=== PATIENT | female | born 1970 | race Caucasian/White ===

== ENCOUNTER 2018-11-09 19:00 | Emergency (ER) | payer OTHER, SELFPAY ==
[2018-11-09 19:12] VITALS: BP 104/68; PULSE 75; RESP 18; TEMP 36.6; O2SAT 100; BMI 19.7
--- NOTE | 2018-11-09 19:23 | DI.RAD.S_ITS ---
PROCEDURE: XR KNEE RT 3V INDICATIONS: probable fracture TECHNIQUE: 2 views of the knee were acquired. COMPARISON: None. FINDINGS: Bones: Mild bony step-off involving the tibial plateau on the lateral view only. No suspicious bony lesions. Soft tissues: Lipohemarthrosis. No suspicious soft tissue calcifications. IMPRESSION: 1. Mildly displaced tibial plateau fracture. 2. Lipohemarthrosis. Dictated by: Tami Parker M.D. on 11/09/2018 at 20:11 Approved by: Tami Parker M.D. on 11/09/2018 at 20:12
[2018-11-09 20:00] VITALS: PULSE 67
--- NOTE | 2018-11-09 20:03 | ED.LOWEXIN ---
HPI - Extremity Injury (Lower) General Chief Complaint: Extremity Injury, Lower Stated Complaint: fall yesterday,states fx tibia Time Seen by Provider: 11/09/18 19:15 Source: patient and family Mode of arrival: wheelchair Limitations: no limitations History of Present Illness HPI Narrative: 48-year-old female, nonsmoker with noncontributory medical history presents with right knee injury suffered yesterday. She was hiking in [place] when she tripped and fell forward on a steep hiking trail and she felt a pop in her knee. Since then she has had tremendous pain, swelling and inability to ambulate. She was seen at an outside facility and had x-rays suggesting a tibial plateau fracture. She presents here for orthopedic evaluation and plans for surgery. She does have some tenderness in her left shoulder but has full range of motion. She did not injure her head neck or back. She was placed in a knee immobilizer at prior facility complaint: knee injury Onset (ago): day(s) Injury: Right: knee Type of Injury: blunt Place: street/outdoors Severity: moderate Relieving factors: nothing Exacerbating factors: nothing Context: direct blow Associated symptoms: snap/pop sensation, swelling and unable to bear weight Other symptoms: none Treatments prior to arrival: splint Related Data Previous Rx's Medication Instructions Recorded oxycodone-acetaminophen [Percocet] 1 tab PO Q4-6H PRN #30 tab 11/09/18 Allergies Allergy/AdvReac Type Severity Reaction Status Date / Time Penicillins Allergy Unknown Verified 11/09/18 19:56 Review of Systems Constitutional Denies chills, Denies fever(s), Denies lethargy and Denies weakness Eyes Denies change in vision, Denies eye discharge, Denies irritation and Denies loss of vision ENT Ears, Nose, Mouth, and Throat: Denies change in voice, Denies neck pain and Denies sore throat Cardiovascular Denies chest pain, Denies irregular heart rhythm, Denies lightheadedness, Denies palpitations, Denies dyspnea, Denies dyspnea on exertion and Denies orthopnea Respiratory Denies cough, Denies dyspnea, Denies dyspnea on exertion and Denies wheezing Gastrointestinal Gastrointestinal: Denies abdominal pain, Denies change in bowel habits, Denies diarrhea, Denies nausea and Denies vomiting Genitourinary Denies hematuria, Denies flank pain, Denies urinary incontinence and Denies urinary urgency Musculoskeletal Reports joint swelling, Reports limited range of motion and Denies neck pain Integumentary/Breasts Denies pruritus, Denies erythema, Denies rash and Denies wounds Neurologic Denies confusion, Denies loss of vision and Denies weakness Psychiatric Denies anxiety, Denies confusion, Denies depression, Denies homicidal ideation and Denies suicidal ideation Endocrine Denies palpitations Hematologic/Lymphatic Denies easy bruising Allergic/Immunologic Denies wheezing PFSH Social History Smoking Status: Never smoker Social History Smoking Status: Never smoker Exam Narrative Exam Narrative: GENERAL: 48F in pain, wearing immobilizer, GCS 15 HEAD: Atraumatic. Normocephalic. No temporal or scalp tenderness. EYES: Pupils equal round and reactive. Extraocular motions intact. No scleral icterus. No injection or drainage. ENT: Nose without bleeding, purulent drainage or septal hematoma. Throat without erythema, tonsillar hypertrophy or exudate. Uvula midline. Airway patent. NECK: Trachea midline. No JVD or lymphadenopathy. Supple, nontender, no meningeal signs. CARDIOVASCULAR: Regular rate and rhythm without murmurs, gallops, or rubs. RESPIRATORY: Clear to auscultation. Breath sounds equal bilaterally. No wheezes, rales, or rhonchi. GASTROINTESTINAL: Abdomen soft, non-tender, nondistended. No hepato-splenomegaly, or palpable masses. No guarding. EXTREMITIES: No clubbing, cyanosis, or edema. No joint tenderness, effusion, or edema noted. BACK: Nontender without deformity or crepitance. No flank tenderness. NEURO: AOx3. SKIN: No rash or erythema. Initial Vital Signs Initial Vital Signs: Vital Signs Temperature 98 F 11/09/18 19:12 Pulse Rate 75 11/09/18 19:12 Respiratory Rate 18 11/09/18 19:12 Blood Pressure 104/68 11/09/18 19:12 Pulse Oximetry 100 11/09/18 19:12 Procedures Orthopedic Splinting/Casting Injury #1: Side: right Lower Extremity Injury Location: knee Lower Extremity Immobilizer: knee immobilizer Other Orthopedic Equipment: crutches Post splinting neuro exam: intact Post splinting vascular exam: intact Placed by: Nursing Course Orders Ordered: ED Orders 11/09/18 19:23 XR knee RT 1to2V Stat 11/09/18 20:27 CT LE RT wo con Stat Discontinued Medications Ondansetron HCl (Zofran Odt) 4 mg PO NOW ONE Stop: 11/09/18 20:26 Last Admin: 11/09/18 20:26 Dose: 4 mg Oxycodone/Acetaminophen (Percocet 5/325) 2 tab PO NOW ONE Stop: 11/09/18 20:26 Last Admin: 11/09/18 20:26 Dose: 2 tab Oxycodone/Acetaminophen (Endocet 5/325 Prepack) 1 bottle MISC SEEINSTR ONE Stop: 11/09/18 21:54 Last Admin: 11/09/18 22:22 Dose: 1 bottle Consultations Consultation #1: call to hydro station supervisor ortho to discuss case, he recommends CT after seeing xray. Then crutches, knee immobilizer, no weight bearing, and follow up Vital Signs - 8 hr 11/09/18 19:12 Temperature 98 F Pulse Rate 75 Respiratory Rate 18 Blood Pressure 104/68 Pulse Oximetry 100 MDM - Extremity Injury (Lower) Imaging Data Knee Xray: Radiologist's impression: [address] [address] XRay Report Signed Patient: Arlette Rao LMR#: [id number] : 1970Acct:[id number] Age/Sex: 48 / FDate of Service: 11/09/18 Loc: ED Accession Number: [id number] Procedure: XR knee RT 1to2V Ordering Provider: Rob Rausch D.O. PROCEDURE: XR KNEE RT 3V INDICATIONS: probable fracture TECHNIQUE: 2 views of the knee were acquired. COMPARISON: None. FINDINGS: Bones: Mild bony step-off involving the tibial plateau on the lateral view only. No suspicious bony lesions. Soft tissues: Lipohemarthrosis. No suspicious soft tissue calcifications. IMPRESSION: 1. Mildly displaced tibial plateau fracture. 2. Lipohemarthrosis. Dictated by: Tami Parker M.D. on 11/09/2018 at 20:[address]: Radiologist's impression: Arlette Rao 48 F [address] [address] [address] Scan Report Signed Patient: ChristopherubaldoArlette LMR#: [id number] : 1970Acct:[id number] Age/Sex: 48 / FDate of Service: 11/09/18 Loc: ED Accession Number: [id number] Procedure: CT LE RT wo con Ordering Provider: Rob Rausch D.O. PROCEDURE: CT LE RT WO CON INDICATIONS: tibial plateau fx TECHNIQUE: Noncontrast 1-1.5 mm axial sections acquired from the mid-patella to the proximal tibia, with coronal and sagittal reformats. COMPARISON: [facility], CR, XR KNEE RT 3V, 11/09/2018, 19:53. FINDINGS: Image quality: Excellent. Bones: There is a mildly displaced comminuted fracture of the medial and lateral tibial plateau with articular surface extension the to the medial and lateral articular surfaces. Soft tissues: Lipohemarthrosis is present. IMPRESSION: 1. Medial and lateral tibial plateau fracture. 2. Lipohemarthrosis. Dictated by: Tami Parker M.D. on 11/09/2018 at 21:49 Approved by: Tami Parker M.D. on 11/09/2018 at 21:50 Discharge Plan Departure Patient Disposition: Home Clinical Impression: Closed fracture of tibial plateau Qualifiers: Encounter type: initial encounter Laterality: right Qualified Code(s): S82.141A - Displaced bicondylar fracture of right tibia, initial encounter for closed fracture Discharge Date/Time: 11/09/18 22:20 Interventions: ED Discharge Assessment Last Done: 11/09/18 22:20 Instructions: DI for Tibial Plateau Fracture Activity Restrictions/Additional Instructions: *You have been diagnosed with [acute Right Tibial Plateau fracture ] *What to do: *Take medications as directed *Follow up with [facility], call Monday for follow up * absolutely no weight-bearing *Return to ER if you should have any new, worsening or concerning symptoms, Prescriptions: New oxycodone-acetaminophen [Percocet] 5-325 mg tablet 1 tab PO Q4-6H PRN (Reason: pain) Qty: 30 RF: 0 Referrals: Mykel Garay MD [Physician] -
--- NOTE | 2018-11-09 20:06 | ED_ITS ---
HPI - Extremity Injury (Lower) General Chief Complaint: Extremity Injury, Lower Stated Complaint: fall yesterday,states fx tibia Time Seen by Provider: 11/09/18 19:15 Source: patient and family Mode of arrival: wheelchair Limitations: no limitations History of Present Illness HPI Narrative: 48-year-old female, nonsmoker with noncontributory medical history presents with right knee injury suffered yesterday. She was hiking in [place] when she tripped and fell forward on a steep hiking trail and she felt a pop in her knee. Since then she has had tremendous pain, swelling and inability to ambulate. She was seen at an outside facility and had x-rays suggesting a tibial plateau fracture. She presents here for orthopedic evaluation and plans for surgery. She does have some tenderness in her left shoulder but has full range of motion. She did not injure her head neck or back. She was placed in a knee immobilizer at prior facility complaint: knee injury Onset (ago): day(s) Injury: Right: knee Type of Injury: blunt Place: street/outdoors Severity: moderate Relieving factors: nothing Exacerbating factors: nothing Context: direct blow Associated symptoms: snap/pop sensation, swelling and unable to bear weight Other symptoms: none Treatments prior to arrival: splint Related Data Previous Rx's Medication Instructions Recorded oxycodone-acetaminophen [Percocet] 1 tab PO Q4-6H PRN #30 tab 11/09/18 Allergies Allergy/AdvReac Type Severity Reaction Status Date / Time Penicillins Allergy Unknown Verified 11/09/18 19:56 Review of Systems Constitutional Denies chills, Denies fever(s), Denies lethargy and Denies weakness Eyes Denies change in vision, Denies eye discharge, Denies irritation and Denies loss of vision ENT Ears, Nose, Mouth, and Throat: Denies change in voice, Denies neck pain and Denies sore throat Cardiovascular Denies chest pain, Denies irregular heart rhythm, Denies lightheadedness, Denies palpitations, Denies dyspnea, Denies dyspnea on exertion and Denies orthopnea Respiratory Denies cough, Denies dyspnea, Denies dyspnea on exertion and Denies wheezing Gastrointestinal Gastrointestinal: Denies abdominal pain, Denies change in bowel habits, Denies diarrhea, Denies nausea and Denies vomiting Genitourinary Denies hematuria, Denies flank pain, Denies urinary incontinence and Denies urinary urgency Musculoskeletal Reports joint swelling, Reports limited range of motion and Denies neck pain Integumentary/Breasts Denies pruritus, Denies erythema, Denies rash and Denies wounds Neurologic Denies confusion, Denies loss of vision and Denies weakness Psychiatric Denies anxiety, Denies confusion, Denies depression, Denies homicidal ideation and Denies suicidal ideation Endocrine Denies palpitations Hematologic/Lymphatic Denies easy bruising Allergic/Immunologic Denies wheezing PFSH Social History Smoking Status: Never smoker Social History Smoking Status: Never smoker Exam Narrative Exam Narrative: GENERAL: 48F in pain, wearing immobilizer, GCS 15 HEAD: Atraumatic. Normocephalic. No temporal or scalp tenderness. EYES: Pupils equal round and reactive. Extraocular motions intact. No scleral icterus. No injection or drainage. ENT: Nose without bleeding, purulent drainage or septal hematoma. Throat without erythema, tonsillar hypertrophy or exudate. Uvula midline. Airway patent. NECK: Trachea midline. No JVD or lymphadenopathy. Supple, nontender, no meningeal signs. CARDIOVASCULAR: Regular rate and rhythm without murmurs, gallops, or rubs. RESPIRATORY: Clear to auscultation. Breath sounds equal bilaterally. No wheezes, rales, or rhonchi. GASTROINTESTINAL: Abdomen soft, non-tender, nondistended. No hepato- splenomegaly, or palpable masses. No guarding. EXTREMITIES: No clubbing, cyanosis, or edema. No joint tenderness, effusion, or edema noted. BACK: Nontender without deformity or crepitance. No flank tenderness. NEURO: AOx3. SKIN: No rash or erythema. Initial Vital Signs Initial Vital Signs: Vital Signs Temperature 98 F 11/09/18 19:12 Pulse Rate 75 11/09/18 19:12 Respiratory Rate 18 11/09/18 19:12 Blood Pressure 104/68 11/09/18 19:12 Pulse Oximetry 100 11/09/18 19:12 Procedures Orthopedic Splinting/Casting Injury #1: Side: right Lower Extremity Injury Location: knee Lower Extremity Immobilizer: knee immobilizer Other Orthopedic Equipment: crutches Post splinting neuro exam: intact Post splinting vascular exam: intact Placed by: Nursing Course Orders Ordered: ED Orders 11/09/18 19:23 XR knee RT 1to2V Stat 11/09/18 20:27 CT LE RT wo con Stat Discontinued Medications Ondansetron HCl (Zofran Odt) 4 mg PO NOW ONE Stop: 11/09/18 20:26 Last Admin: 11/09/18 20:26 Dose: 4 mg Oxycodone/Acetaminophen (Percocet 5/325) 2 tab PO NOW ONE Stop: 11/09/18 20:26 Last Admin: 11/09/18 20:26 Dose: 2 tab Oxycodone/Acetaminophen (Endocet 5/325 Prepack) 1 bottle MISC SEEINSTR ONE Stop: 11/09/18 21:54 Last Admin: 11/09/18 22:22 Dose: 1 bottle Consultations Consultation #1: call to refrigeration mechanic ortho to discuss case, he recommends CT after seeing xray. Then crutches, knee immobilizer, no weight bearing, and follow up Vital Signs - 8 hr 11/09/18 19:12 Temperature 98 F Pulse Rate 75 Respiratory Rate 18 Blood Pressure 104/68 Pulse Oximetry 100 MDM - Extremity Injury (Lower) Imaging Data Knee Xray: Radiologist's impression: [address] [address] XRay Report Signed Patient: Arlette Rao LMR#: [id number] : 1970Acct:[id number] Age/Sex: 48 / FDate of Service: 11/09/18 Loc: ED Accession Number: [id number] Procedure: XR knee RT 1to2V Ordering Provider: Rob Rausch D.O. PROCEDURE: XR KNEE RT 3V INDICATIONS: probable fracture TECHNIQUE: 2 views of the knee were acquired. COMPARISON: None. FINDINGS: Bones: Mild bony step-off involving the tibial plateau on the lateral view only. No suspicious bony lesions. Soft tissues: Lipohemarthrosis. No suspicious soft tissue calcifications. IMPRESSION: 1. Mildly displaced tibial plateau fracture. 2. Lipohemarthrosis. Dictated by: Tami Parker M.D. on 11/09/2018 at 20:[address]: Radiologist's impression: Arlette Rao 48 F [address] [address] [address] Scan Report Signed Patient: ChristopherubaldoArlette LMR#: [id number] : 1970Acct:[id number] Age/Sex: 48 / FDate of Service: 11/09/18 Loc: ED Accession Number: [id number] Procedure: CT LE RT wo con Ordering Provider: Rob Rausch D.O. PROCEDURE: CT LE RT WO CON INDICATIONS: tibial plateau fx TECHNIQUE: Noncontrast 1-1.5 mm axial sections acquired from the mid-patella to the proximal tibia, with coronal and sagittal reformats. COMPARISON: [facility], CR, XR KNEE RT 3V, 11/09/2018, 19:53. FINDINGS: Image quality: Excellent. Bones: There is a mildly displaced comminuted fracture of the medial and lateral tibial plateau with articular surface extension the to the medial and lateral articular surfaces. Soft tissues: Lipohemarthrosis is present. IMPRESSION: 1. Medial and lateral tibial plateau fracture. 2. Lipohemarthrosis. Dictated by: Tami Parker M.D. on 11/09/2018 at 21:49 Approved by: Tami Parker M.D. on 11/09/2018 at 21:50 Discharge Plan Departure Patient Disposition: Home Clinical Impression: Closed fracture of tibial plateau Qualifiers: Encounter type: initial encounter Laterality: right Qualified Code(s): S82.141A - Displaced bicondylar fracture of right tibia, initial encounter for closed fracture Discharge Date/Time: 11/09/18 22:20 Interventions: ED Discharge Assessment Last Done: 11/09/18 22:20 Instructions: DI for Tibial Plateau Fracture Activity Restrictions/Additional Instructions: *You have been diagnosed with [acute Right Tibial Plateau fracture ] *What to do: *Take medications as directed *Follow up with [facility], call Monday for follow up * absolutely no weight-bearing *Return to ER if you should have any new, worsening or concerning symptoms, Prescriptions: New oxycodone-acetaminophen [Percocet] 5-325 mg tablet 1 tab PO Q4-6H PRN (Reason: pain) Qty: 30 RF: 0 Referrals: Mykel Garay MD [Physician] -
[2018-11-09] MEDS: ONDANSETRON 4 MG ODT PO (20:26)
[2018-11-09] MEDS: OXYCODONE/ACETAMINOPHEN 5/325 TABLET 2 TAB PO (20:26)
--- NOTE | 2018-11-09 20:27 | DI.CT.S_ITS ---
PROCEDURE: CT LE RT WO CON INDICATIONS: tibial plateau fx TECHNIQUE: Noncontrast 1-1.5 mm axial sections acquired from the mid-patella to the proximal tibia, with coronal and sagittal reformats. COMPARISON: [facility], CR, XR KNEE RT 3V, 11/09/2018, 19:53. FINDINGS: Image quality: Excellent. Bones: There is a mildly displaced comminuted fracture of the medial and lateral tibial plateau with articular surface extension the to the medial and lateral articular surfaces. Soft tissues: Lipohemarthrosis is present. IMPRESSION: 1. Medial and lateral tibial plateau fracture. 2. Lipohemarthrosis. Dictated by: Tami Parker M.D. on 11/09/2018 at 21:49 Approved by: Tami Parker M.D. on 11/09/2018 at 21:50
[2018-11-09 21:30] VITALS: BP 106/68; PULSE 64; RESP 17; O2SAT 100
[2018-11-09] MEDS: OXYCODONE/APAP 5/325 PREPACK 1 BOTTLE MISC (22:22)
== END 2018-11-09 22:20 | disposition home or self-care (01) ==
PROVIDERS: Emergency Provider Emergency Medicine
DX: S82.141A Displaced bicondylar fracture of right tibia, initial encounter for closed fracture (principal); W19.XXXA Unspecified fall, initial encounter
CPT/HCPCS: 73560; 73700; 99282; 99284

== ENCOUNTER → 2018-11-16 14:20 | Outpatient (CLI) | payer OTHER, SELFPAY ==
--- NOTE | 2018-11-16 | DI.US.S_ITS ---
PROCEDURE: US PERIPH VENOUS LOW EXTREM RT INDICATIONS: RIGHT LEG PAIN AND SWELLING TECHNIQUE: Real-time imaging, as well as color and pulse Doppler interrogation, were performed of the lower extremity deep veins from the inguinal ligament to the popliteal fossa. COMPARISON: None. FINDINGS: The common femoral, femoral and popliteal veins are normally compressible, and free of intraluminal thrombus. Color and pulse Doppler demonstrate normal phasic intraluminal flow. There is normal augmentation response to distal compression maneuver. IMPRESSION: No deep venous thrombosis identified within the right lower extremity. Dictated by: Andi Vanessa [facility] Interpreted: Oz Mcdonnell MD on 11/16/2018 at 15:58 Approved by: Oz Mcdonnell M.D. on 11/16/2018 at 18:09
== END ==
PROVIDERS: Visit Provider Orthopaedic Surgery
DX: M79.604 Pain in right leg (principal); M79.89 Other specified soft tissue disorders
CPT/HCPCS: 93971

== ENCOUNTER 2019-06-11 07:58 | Day surgery (SDC) | payer OTHER, SELFPAY ==
[2019-06-07 13:06] VITALS: BMI 19.3
[2019-06-11] VITALS (12 sets, daily range): BP systolic 101–147; BP diastolic 64–86; PULSE 50–95; RESP 10–24; TEMP 36.2–36.8; O2SAT 96–100; BMI 19.5
--- NOTE | 2019-06-11 09:00 | PM.PREOP ---
Pre-operative Note Interval Note History & Physical reviewed/Exam performed by Physician: Yes Changes to H&P: No
[2019-06-11] MEDS: LACTATED RINGERS 1,000 ML 42 ML IV (09:13)
[2019-06-11] MEDS: CLINDAMYCIN 900 MG/50 ML PIGGYBACK 50 MG IV (09:15)
--- NOTE | 2019-06-11 09:45 | SUR.OPER ---
Left Lateral on padded OR bed, head on pillow, gel axillary roll in place, bottom leg bent with gel pad under knee to foot, upper leg straight and supported with pillows. Upper arm supported by pillows and secured over bottom arm to padded arm board. Safety belt at hip, tape over blanket lower legs.
[2019-06-11] MEDS: BUPIVACAINE 0.25% W/ EPI (PF) 10 ML VIAL 20 ML INJ (10:31)
[2019-06-11] MEDS: HYDROMORPHONE 2 MG INJ IV (11:03)
[2019-06-11] MEDS: fentaNYL 100 MCG/2 ML INJ IV ×3 (11:03→11:22)
[2019-06-11] MEDS: ONDANSETRON 4 MG/2 ML INJ IV (11:03)
--- NOTE | 2019-06-11 11:03 | PM.OP.1 ---
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 The patient underwent over 6 months of physical therapy it but in her recovery. Developed an equinus contracture. She has been working diligently with physical therapy and stretching but is not able to get above neutral. She did increase from 20? plantar flexion up to neutral. She has no difference in her dorsiflexion to neutral in knee extension and knee flexion therefore has an Achilles contracture. We discussed Achilles lengthening in order to get her please 10? dorsiflexion to help with normalizing gait. The risks and benefits of the procedure have been discussed with the patient even opportunity to ask questions. The risks of surgery include but are not limited to infection, malunion, nonunion, persistence of pain, damage to nerves and blood vessels, posttraumatic arthritis, DVT, PE, cardiopulmonary complications and . The patient expressed a thorough understanding of the risks and benefits of surgery and has elected to proceed. Consent was signed in the office. Postoperatively the patient will be nonweightbearing for 2 weeks and a dorsiflexion splint. She will then transition to weight-bearing in a boot or cast. She has no history of DVT. She will have aspirin as DVT prophylaxis postoperatively. Surgeon: Cindy Pierson Click Yes if Unassisted: Yes Anesthesia Type: General and Local Operative Notes Findings: Achilles contractures 0? dorsiflexion with knee extended and knee flexion. Following triple mateo section lengthening 10? dorsiflexion obtained. Closure Type: primary Specimen(s): none sent Estimated Blood Loss (mL): 2 Blood products transfused: none Tourniquet time (min): 45 Procedure in detail: The patient was seen in the preoperative area the site of surgery was marked and informed consent confirmed. The patient was then back to the operating room by the anesthesia team positioned supine on the operative table. General anesthesia was administered. Patient was then positioned lateral position on the beanbag. A well-padded thigh tourniquet was placed. All bony prominences were padded with careful padding around the peroneal nerve and a axillary roll placed. An SCD was placed on the contralateral lower extremity. A formal time-out procedure was performed confirming the patient's side and site of surgery and administration of appropriate preoperative antibiotics. All were in agreement. An Esmarch was utilized and tourniquet elevated to 250 mm of mercury and stayed there for 45 minutes. Attention was turned to the leg holding the leg in dorsiflexion to tighten the Achilles 3 small 1-2 cm incisions were made along the Achilles of vertically the Achilles tendon was exposed and 3 mateo sections were made through the tendon. The proximal and distal incisions were made to the medial side and the middle incision to the lateral side. Of note the sural nerve was visualized in the medial incision wound and protected throughout the case. Once the release was complete at extra care was taken dorsiflexing the leg up into about 10? of dorsiflexion and making sure there were no slips of tendon remaining and hampering the release. There was extensive scar tissue noted proximally and laterally in even up to the peroneal fascia posterior laterally this was partially released and gave a few more degrees of dorsiflexion. But a pretty firm endpoint at 10? dorsiflexion was encountered. At this point no further tendon slips were felt to be hampering the range of motion through the Achilles incisions therefore the wounds were irrigated. Tourniquet was released and hemostasis achieved. The wounds were cleaned closed in layers with 4 0 Monocryl and 3 O nylon. 0.25% Marcaine with epinephrine was injected for local anesthetic. A sterile dressing was Xeroform gauze Webril and a posterior and U slab splint in maximal dorsiflexion was applied. Patient was then taken to the recovery room in good condition. There no immediate complications from this procedure. Counts were correct Complications: none Post-operative Condition: stable Disposition: PACU Plan for aftercare: Nonweightbearing right lower extremity. Elevate above the heart level. Pain medications as needed. Keep splint clean dry and intact. Follow-up in 2 weeks. Start aspirin 325 mg daily on postop day 1 for DVT prophylaxis.
[2019-06-11] MEDS: hydrOXYzine 50 MG/ML INJ 25 MG IM (11:15)
[2019-06-11] MEDS: KETOROLAC 30 MG/ML VIAL IV (11:26)
== END 2019-06-11 12:35 | disposition home or self-care (01) ==
PROVIDERS: PCP Orthopaedic Surgery Foot and Ankle Surgery; Visit Provider Orthopaedic Surgery Foot and Ankle Surgery
PROC: (CPT 27685; principal; 2019-06-11 09:15)
DX: M67.01 Short Achilles tendon (acquired), right ankle (principal); M24.571 Contracture, right ankle; M62.89 Other specified disorders of muscle; S86.111A Strain of other muscle(s) and tendon(s) of posterior muscle group at lower leg level, right leg, initial encounter
CPT/HCPCS: 27685; J1100; J1170; J1885; J2250; J2405; J2704; J3010; J3410

== ENCOUNTER → 2020-11-05 12:05 | Outpatient (CLI) | payer OTHER, SELFPAY ==
[2020-11-05 20:14] LABS: Add Manual Diff / Slide Review NO; Basophils Absolute Auto 0 /uL (0-100); Basophils Percent Auto 0.6 % (0-2); Eosinophils Absolute Auto 0 /uL (0-450); Eosinophils Percent Auto 0.8 % (2-4); Hematocrit 39.6 % (36-46); Hemoglobin 13.2 g/dL (12.0-16.0); Lymphocytes Absolute Auto 1000 /uL (1100-4500); Lymphocytes Percent Auto 21.8 % (25-40); Mean Corpuscular HGB Conc 33.3 % (30-36); Mean Corpuscular Hemoglobin 31.1 PG (26-34); Mean Corpuscular Volume 93.3 fL (80-100); Monocytes Absolute Auto 300 /uL (0-900); Neutrophils Absolute Auto 3200 /uL (1500-7000); Neutrophils Percent Auto 69.8 % (50-75); Platelet Count 130 X10^3/uL (150-400); Red Blood Cell Count 4.25 X10^6/uL (4.0-5.2); Red Cell Distribution Width 15.4 % (11.6-14.8); White Blood Cell Count 4.5 X10^3/uL (4.5-11.0)
[2020-11-05 20:29] LABS: HEMOLYSIS < 15 (0-50); Iron 79 ug/dL (37-170)
[2020-11-05 20:42] LABS: Percent Iron Saturation 28 % (15-50); Total Iron Binding Capacity 283 ug/dL (265-497); Transferrin 218 mg/dL (206-381)
[2020-11-05 21:06] LABS: Ferritin 391 ng/mL (11-264)
[2020-11-09 15:35] LABS: Alpha-1-Globulin 0.2 g/dL (0.0-0.4); Alpha-2-Globulin 0.6 g/dL (0.4-1.0); Gamma Globulin 1.3 g/dL (0.4-1.8); Globulin Total 2.9 g/dL (2.2-3.9); Protein, Total 6.9 g/dL (6.0-8.5)
[2020-11-10 14:58] LABS: Alpha-1 Globulin, Ur 3.8 % (.); Gamma Globulin, Ur 17.8 % (.); M-Spike % Not Observed % (Not Observed); Urine Total Protein 6.4 mg/dL (Not Estab.)
== END ==
PROVIDERS: Internal Medicine Gastroenterology; PCP Orthopaedic Surgery Foot and Ankle Surgery; Visit Provider Physician Assistant
DX: E61.1 Iron deficiency (principal)
CPT/HCPCS: 82728; 83540; 83550; 84155; 84156; 84165; 84166; 85025

== ENCOUNTER → 2020-11-27 11:49 | Outpatient (CLI) | payer OTHER, SELFPAY ==
[2020-11-27 20:22] LABS: COVID19 - ORCAS (NP or Nasal) Negative (Negative)
== END ==
PROVIDERS: PCP Orthopaedic Surgery Foot and Ankle Surgery; Visit Provider Family Medicine
DX: Z20.822 Contact with and (suspected) exposure to COVID-19 (principal)
CPT/HCPCS: U0003

== ENCOUNTER → 2020-11-30 14:08 | Outpatient (CLI) | payer OTHER, SELFPAY ==
[2020-11-30 16:44] LABS: COVID19 -Nasal RAPID Negative (Negative)
== END ==
PROVIDERS: PCP Orthopaedic Surgery Foot and Ankle Surgery; Visit Provider Physician Assistant
DX: Z01.812 Encounter for preprocedural laboratory examination (principal); Z20.822 Contact with and (suspected) exposure to COVID-19
CPT/HCPCS: 87635

== ENCOUNTER → 2022-01-10 14:57 | Outpatient (CLI) | payer OTHER, SELFPAY ==
[2022-01-10 15:24] LABS: Specimen Label TEST KIT
[2022-01-12 05:12] LABS: Candida species Negative (Negative); Gardnerella vaginalis Negative (Negative); Trichomoas vaginalis Negative (Negative)
== END ==
PROVIDERS: PCP Family Medicine; Referring Provider Obstetrics & Gynecology; Visit Provider Obstetrics & Gynecology
DX: N76.0 Acute vaginitis (principal)
CPT/HCPCS: 87480; 87510; 87660

== ENCOUNTER 2022-05-05 10:16 | Day surgery (SDC) | payer OTHER, SELFPAY ==
[2022-05-02 08:00] VITALS: BMI 19.7
[2022-05-05] VITALS (8 sets, daily range): BP systolic 125–143; BP diastolic 73–85; PULSE 68–84; RESP 11–19; TEMP 36.1–36.7; O2SAT 97–100; BMI 19.3
--- NOTE | 2022-05-05 | PATH_ITS ---
[facility] Accession Number: [id number] . 01 Material submitted: . ovary - BILATERAL OVARIES, FALLOPIAN TUBES. Modifiers: FALLOPIAN TUBES . 01 Diagnosis: A. Bilateral Ovaries and Fallopian Tubes, Bilateral Salpingo-oophorectomy: Bilateral ovaries with simple lined surface inclusion cysts, focal dystrophic calcifications, and atrophic changes. Bilateral fallopian tubes with benign paratubal cysts. No evidence of dysplasia, neoplasia or malignancy. MRV 05/10/2022 1337 Local . 01 Electronically signed: . Candelaria Jurado MD, Pathologist NPI- [id number] . 01 Gross description: . The specimen is received in formalin labeled with the patient's name, , and bilateral ovaries and fallopian tube, and consists of two unoriented fimbriated fallopian tubes with attached ovaries. The first is arbitrarily designated tube and ovary A. Tube A measures 5.1 cm in length by 0.7 cm in diameter with banks roughened serosa and multiple cystic structures measuring up to 0.7 cm in greatest dimension, filled with clear serous fluid. Sectioning reveals an unremarkable stellate lumen. Ovary A weighs 2 grams and measures 2.7 x 1.7 x 0.9 cm. The external surfaced is yellow-bansk and cerebriform, and sectioning reveals a banks to brown physiologic cut surface with no lesions identified. . Tube B measures 4.4 cm in length and 0.7 cm in diameter with banks roughened serosa and multiple cystic structures measuring up to 0.5 cm in greatest dimension filled with clear serous fluid. Sectioning reveals a tortuous stellate lumen. Ovary B weighs 2 grams and measures 2.5 x 1.9 x 0.9 cm. The external surface is yellow to banks and cerebriform, and sectioning reveals a banks to brown physiologic cut surface with no lesions identified. The specimen is submitted entirely as follows: . A1-A3: Entire tube A. A4-A5: Entire ovary A. A6-A8: Entire tube B. A9-A11: Entire ovary B. ([id number]) /MRV 05/10/2022 1338 Local . 01 Pathologist provided ICD-10: Z15.01 . 01 CPT . 727314 Specimen Comment: A courtesy copy of this report has been sent to [phone] Performed at: 01 [facility] [address] [place] [address], [place], [place] [id number] MD Lance Fowler MD Phone: [phone]
[2022-05-05] MEDS: LACTATED RINGERS 1,000 ML 100 ML IV (10:52)
[2022-05-05] MEDS: SCOPOLAMINE 1 PATCH TOP (11:03)
[2022-05-05 11:04] LABS: COVID19 -Nasal RAPID Negative (Negative)
--- NOTE | 2022-05-05 11:36 | SUR.OPER ---
Lithotomy on padded OR bed. [place] Pad Positioner under torso. Head on pillow, arms padded and tucked at sides. Legs secured in padded yellow fins stirrups.
--- NOTE | 2022-05-05 11:46 | P.HP_ITS ---
History of Present Illness History of Present Illness Date Patient Seen: 05/05/22 Time Patient Seen: 11:46 Chief complaint: SDC Narrative: Patient is a 52-year-old 3 para 3 who presents for a laparoscopic bilateral salpingo-oophorectomy due to BRCA 2 positivity. Patient History Medical History Anemia (~2020) Equinus contracture of right ankle (~2018) Fractures (~2018) Lyme disease Scoliosis Surgical History Anesthesia History of hernia surgery (~05/2004) History of surgery (~05/2019) Hx of tubal ligation Family & Social History Family History (Updated 01/11/22 @ 18:29 by Angela Nava) Father Prostate cancer History of elevated PSA Diabetes mellitus Hypertension Mother Hyperlipidemia Mental health problem Sister Hypertension Sister Hypertension Grandmother Cancer Grandfather Cancer Grandmother Hyperlipidemia Stroke Social History: household members spouse Tobacco & Substance use: Smoking Status Never smoker alcohol intake never Substance Use Type does not use Meds Home Medications and Allergies Home Medications Medication Instructions Recorded Confirmed Type estradiol 0.01% (0.1 mg/gram) 1 g vaginal 2XW 01/10/22 05/02/22 History vaginal cream Allergies Allergy/AdvReac Type Severity Reaction Status Date / Time Penicillins Allergy Unknown Verified 01/10/22 13:58 Exam Vital Signs (past 8 hours): - 05/05/22 10:44 Temperature 97 F L Pulse Rate 75 Respiratory Rate 14 Blood Pressure 143/82 H Pulse Oximetry 97 Oxygen Delivery Method Room Air Oxygen Delivery Method Room Air Narrative Exam Narrative: HEENT: No thyromegaly, no anterior cervical or supraclavicular lymphadenopathy. Lungs:Clear to auscultation bilaterally, no wheezes. Cardiovascular: Regular rate and rhythm, no murmurs, rubs, or gallops. Abdomen: Well-healed scars. No hepatosplenomegaly. No masses palpable. External genitalia: Normal Vagina: Normal Cervix: Normal Bimanual exam: 7 Week size uterus. Mobile. No adnexal masses or tenderness. Extremities: No edema Objective Labs Labs: Laboratory Results - last 24 hr 05/05/22 10:25 SARS-CoV-2 (PCR) Negative Assessment & Plan Assessment & Plan narrative: Assessment: 52-year-old 3 para 3 who is BRCA 2 positive Plan: Laparoscopic bilateral salpingo-oophorectomy The risks, benefits, and alternatives to the procedure were explained to the patient. The risks including bleeding, infection, injury to the bowel, bladder, or ureters. She understands these risks and agrees to proceed. A full par Q w as held and consent form was signed. COVID-19 COVID-19 status: Negative Result date/Date tested (Pos, Neg/Pending): 05/05/22 Time Spent With Patient Time with patient: less than 30 minutes Critical Care time: I spent a total of [] minutes of critical care time on this patient's care today; this time is exclusive of procedural time.
--- NOTE | 2022-05-05 11:57 | PM.PREOP ---
Pre-operative Note COVID-19 COVID-19 status: Negative Result date/Date tested (Pos, Neg/Pending): 05/05/22 Criteria for continued procedure: Non-surgical alternatives not available or appropriate per current SOC Interval Note History & Physical reviewed/Exam performed by Physician: Yes Changes to H&P: No H&P completed within 30 days and has changed as indicated here:: 05/05/22
[2022-05-05] MEDS: ACETAMINOPHEN IV 1,000 MG/100 ML VIAL 400 MG IV (12:25)
[2022-05-05] MEDS: BUPIVACAINE 0.5% W/ EPI (PF) 30 ML VIAL INJ (13:00)
--- NOTE | 2022-05-05 13:07 | PM.GYNOP.1 ---
Operative Date/Time/Diagnoses Date of procedure: 05/05/22 Time of procedure: 13:08 Pre-op diagnosis: BRCA 2 + Post-op diagnosis: same Procedure & Clinicians Procedure: Procedures Operation Date: 05/05/22 11:45 Actual Procedure Side Surgeon p Laparoscopic Salpingectomy-oophorectomy Bilateral Shahnaz Cowart MD Indications: BRCA 2 + Surgeon: Shahnaz Cowart Anesthesia Type: General and Local Operative Notes Findings: 5 wk size anteverted uterus Normal tubes and ovaries Normal appendix and gallbladder 2 liver lesions, consistent with hemangiomas Closure Type: primary Specimen(s): left tube & ovary and right tube & ovary Estimated blood loss (mL): 5 Blood products transfused: none Procedure in detail: After informed consent was obtained, the patient was taken to the operating room where she was placed in the dorsal supine position. After adequate general endotracheal anesthesia was achieved, she was placed in the dorsal lithotomy position, and prepped and draped in the usual sterile fashion. A time-out was performed. A bivalve speculum was placed into the vagina and the anterior lip of the cervix was grasped with a single-tooth tenaculum. The cervical os was sequentially dilated until the Zumi uterine manipulator could pass easily into the endometrial cavity. The single-tooth tenaculum was removed from the anterior lip of the cervix. The bivalve speculum was removed from the vagina. Attention was then turned to the abdomen where 4 cc of 0.25% Marcaine with epinephrine were injected in the umbilical fold. A 5 mm incision was made. The Veress needle was placed into the peritoneal cavity, and its placement confirmed by aspiration and drop test. The abdominal cavity was insufflated with 3.1 L of CO2. The Veress needle was removed, and a 5 mm trocar was placed without difficulty. Two other incisions were made 4 cm lateral to the midline at the level of the umbilicus after 4 cc of 0.25% Marcaine with epinephrine were injected. Two other 5 mm trocars were placed under direct visualization. The pelvis and abdomen were examined with the findings noted above. There were 2 lesions in the liver. General surgery was consulted to take a look at these. They agreed that they looked like hemangiomas. The right tube and ovary were grasped with an atraumatic grasper. Using the power seal, the infundibulopelvic ligament on the right side was cauterized and cut. The utero-ovarian vessels were cauterized and cut. The mesosalpinx was cauterized and cut all the way to the cornua of the uterus. The tube was amputated at the cornua. The right tube and ovary were placed into the anterior cul-de-sac. Hemostasis was achieved. All of this was repeated on the patient's left side. Hemostasis was achieved. 6 cc of 0.25% Marcaine with epinephrine were injected above the pubic symphysis. A 12 mm incision was made. A 12 mm trocar was placed without difficulty, under direct visualization. An endobag was placed through the suprapubic incision. The tubes and ovaries were placed into the bag. The trocar was removed. The edges of the bag were brought up through the incision, and the bag was removed. The fascia was reapproximated with 0 Vicryl in a running fashion. The pelvis was examined and no bleeding was noted. 20 cc of 0.2% ropivacaine were placed over the pedicles. The instruments were removed from the abdomen. The CO2 was allowed to escape. All of the skin incisions were closed with 4-0 Monocryl in a subcuticular fashion. Steri-Strips and Allevyn dressings were placed. The Zumi uterine manipulator was removed from the uterus. Sponge, lap, and instrument counts were correct x2. The patient tolerated the procedure well, and was taken to PACU in stable condition. Complications: none Post-operative Condition: stable Disposition: PACU Plan for aftercare: Home after recovery
[2022-05-05] MEDS: ONDANSETRON 4 MG/2 ML INJ IV (13:36)
--- NOTE | 2022-05-05 13:42 | SUR.PHASEI ---
Patient remains drowsy but arousable; following all commands but states that she feels weak. Denies pain or nausea; GCS 15; neuro status WNL. VSS.
== END 2022-05-05 14:35 | disposition home or self-care (01) ==
PROVIDERS: PCP Family Medicine; Referring Provider Obstetrics & Gynecology; Visit Provider Obstetrics & Gynecology
PROC: 0UT24ZZ Resection of Bilateral Ovaries, Percutaneous Endoscopic Approach (ICD-10-PCS; CPT 58661; principal; 2022-05-05 11:45)
DX: Z15.02 Genetic susceptibility to malignant neoplasm of ovary (principal); Z20.822 Contact with and (suspected) exposure to COVID-19
CPT/HCPCS: 58661; 87635; J0131; J1100; J1885; J2250; J2405; J2704; J3010

== ENCOUNTER → 2022-05-24 08:35 | Outpatient (CLI) | payer OTHER, SELFPAY ==
--- NOTE | 2022-05-24 | DI.CT.S_ITS ---
PROCEDURE: CT ABDOMEN LIVER PROTOCOL INDICATIONS: Liver disease, unspecified TECHNIQUE: 4 phase scanning was performed. Non-contrast 5 mm axial sections acquired from the diaphragm to the iliac crests. Following the administration of intravenous contrast, 5 mm thick arterial-phase, portal venous-phase, and 5-minute delayed phase images were acquired through the liver. 5 mm thick coronal and sagittal reformats were performed. For radiation dose reduction, the following was used: automated exposure control, adjustment of mA and/or kV according to patient size. COMPARISON: None. FINDINGS: Image quality: Excellent. Lung bases: Lung bases are clear. Heart size is normal. Liver: Normal size with a smooth margin. 0.9 cm hypodensity anteriorly in segment eight, 1.6 cm hypodensity anterolateral segment five, and posterolateral 1.4 cm segment six hypodensity all demonstrate postcontrast characteristics of either a flash fill hemangioma or cavernous hemangioma. No suspicious enhancing liver nodules. A subcentimeter cyst is present centrally in the right hepatic lobe. Other solid organs: Gallbladder is normal without wall thickening or visible calcification. Biliary system is non dilated. Pancreas is normal in morphology. Spleen is normal in size and enhancement. No adrenal nodules. Both kidneys demonstrate normal size and enhancement, without hydronephrosis. Several subcentimeter corticomedullary cysts are present bilaterally, the largest measuring 8 mm. There are nonobstructing intrarenal calculi present bilaterally, for example a 3 mm stone in the left upper pole, a 4 mm, and a 2 mm stone in the right midpole. Visible segments of ureter are nondilated. Nodes and vessels: No retroperitoneal or mesenteric adenopathy by size criteria. Aorta and inferior vena cava are normal in size. Bowel and peritoneum: Unenhanced bowel loops are normal in caliber. No free fluid or air. Bones: No suspicious bony lesions. No vertebral body compression fractures. Miscellaneous: No ventral hernias. IMPRESSION: 1. Three hepatic hemangiomas present. 2. Bilateral nonobstructing intrarenal calculi and subcentimeter corticomedullary cysts. Dictated by: Shayy Sellers M.D. on 05/24/2022 at 12:20 Approved by: Shayy Sellers M.D. on 05/24/2022 at 12:36
== END ==
PROVIDERS: PCP Family Medicine; Referring Provider Obstetrics & Gynecology; Visit Provider Obstetrics & Gynecology
DX: K76.9 Liver disease, unspecified (principal); D18.09 Hemangioma of other sites; N20.0 Calculus of kidney; N28.1 Cyst of kidney, acquired
CPT/HCPCS: 74170; Q9967

== ENCOUNTER → 2022-08-15 12:50 | Outpatient (CLI) | payer OTHER, SELFPAY ==
[2022-08-15 13:41] LABS: Add Manual Diff / Slide Review NO; Basophils Absolute Auto 0 /uL (0-100); Basophils Percent Auto 0.5 % (0-2); Eosinophils Absolute Auto 100 /uL (0-450); Eosinophils Percent Auto 1.2 % (2-4); Hemoglobin 12.8 g/dL (12.0-16.0); Lymphocytes Absolute Auto 1300 /uL (1100-4500); Lymphocytes Percent Auto 28.2 % (25-40); Mean Corpuscular HGB Conc 33.7 % (30-36); Mean Corpuscular Hemoglobin 30.4 PG (26-34); Mean Corpuscular Volume 90.3 fL (80-100); Monocytes Absolute Auto 300 /uL (0-900); Monocytes Percent Auto 7.2 % (3-14); Neutrophils Absolute Auto 2900 /uL (1500-7000); Neutrophils Percent Auto 62.9 % (50-75); Platelet Count 151 X10^3/uL (150-400); Red Blood Cell Count 4.21 X10^6/uL (4.0-5.2); Red Cell Distribution Width 13.2 % (11.6-14.8); White Blood Cell Count 4.7 X10^3/uL (4.5-11.0)
[2022-08-15 14:32] LABS: HEMOLYSIS < 15 (0-50); Iron 50 ug/dL (37-170)
[2022-08-15 14:33] LABS: Alanine Aminotransferase 23 IU/L (<35); Albumin 4.3 g/dL (3.5-5.0); Albumin Globulin Ratio 1.3 (1.0-2.8); Alkaline Phosphatase 103 U/L (38-126); Aspartate Aminotransferase 27 IU/L (14-36); BUN Creatinine Ratio 20.3 (6-22); Bilirubin Total 0.3 mg/dL (0.2-1.3); Blood Urea Nitrogen 12 mg/dL (7-17); Calcium 9.3 mg/dL (8.4-10.2); Carbon Dioxide 32 mmol/L (22-32); Chloride 99 mmol/L (98-107); Estimated Glomerular Filt Rate > 60 mL/min (>60); Globulin 3.4 g/dL (1.7-4.1); Glucose 89 mg/dL (70-100); HEMOLYSIS < 15 (0-50); Sodium 139 mmol/L (137-145); Total Protein 7.7 g/dL (6.3-8.2)
[2022-08-15 14:43] LABS: Percent Iron Saturation 16 % (15-50); Total Iron Binding Capacity 317 ug/dL (265-497); Transferrin 220 mg/dL (206-381)
[2022-08-15 15:14] LABS: Ferritin 182 ng/mL (11-264)
== END ==
PROVIDERS: PCP Family Medicine; Referring Provider Internal Medicine Hematology & Oncology; Visit Provider Internal Medicine Hematology & Oncology
DX: K44.9 Diaphragmatic hernia without obstruction or gangrene (principal); R79.89 Other specified abnormal findings of blood chemistry; Z98.890 Other specified postprocedural states
CPT/HCPCS: 36415; 80053; 82390; 82525; 82728; 83540; 83550; 85025

== ENCOUNTER → 2023-10-19 09:34 | Outpatient (CLI) | payer OTHER, SELFPAY ==
[2023-10-19 19:32] LABS: Add Manual Diff / Slide Review NO; Basophils Absolute Auto 0 /uL (0-100); Basophils Percent Auto 0.6 % (0-2); Eosinophils Absolute Auto 100 /uL (0-450); Eosinophils Percent Auto 1.3 % (2-4); Hematocrit 40.1 % (36-46); Hemoglobin 13.4 g/dL (12.0-16.0); Lymphocytes Absolute Auto 1000 /uL (1100-4500); Lymphocytes Percent Auto 26.2 % (25-40); Mean Corpuscular HGB Conc 33.5 % (30-36); Mean Corpuscular Hemoglobin 30.4 PG (26-34); Mean Corpuscular Volume 90.7 fL (80-100); Monocytes Absolute Auto 300 /uL (0-900); Monocytes Percent Auto 8.1 % (3-14); Neutrophils Absolute Auto 2500 /uL (1500-7000); Neutrophils Percent Auto 63.8 % (50-75); Platelet Count 162 X10^3/uL (150-400); Red Blood Cell Count 4.42 X10^6/uL (4.0-5.2); Red Cell Distribution Width 12.7 % (11.6-14.8); White Blood Cell Count 3.9 X10^3/uL (4.5-11.0)
[2023-10-19 19:41] LABS: HEMOLYSIS < 15 (0-50); Iron 91 ug/dL (37-170)
[2023-10-19 19:51] LABS: Percent Iron Saturation 31 % (15-50); Total Iron Binding Capacity 293 ug/dL (265-497); Transferrin 219 mg/dL (206-381)
[2023-10-19 19:58] LABS: Free T3, Triiodothyronine Free 3.73 pg/mL (2.77-5.27)
[2023-10-19 19:59] LABS: Alanine Aminotransferase 22 IU/L (<35); Albumin 4.7 g/dL (3.5-5.0); Albumin Globulin Ratio 1.4 (1.0-2.8); Alkaline Phosphatase 99 U/L (38-126); Aspartate Aminotransferase 31 IU/L (14-36); BUN Creatinine Ratio 16.7 (6-22); Bilirubin Total 0.6 mg/dL (0.2-1.3); Blood Urea Nitrogen 10 mg/dL (7-17); Calcium 9.8 mg/dL (8.4-10.2); Carbon Dioxide 31 mmol/L (22-32); Chloride 102 mmol/L (98-107); Cholesterol 176 mg/dL (140-199); Estimated Glomerular Filt Rate > 60 mL/min (>60); Globulin 3.3 g/dL (1.7-4.1); Glucose 85 mg/dL (70-100); HDL Cholesterol 60 mg/dL (40-60); HEMOLYSIS < 15 (0-50); LDL Cholesterol Calculated 100 mg/dL (<100); Potassium 4.1 mmol/L (3.4-5.1); Sodium 139 mmol/L (137-145); Triglycerides 78 mg/dL (35-150)
[2023-10-19 20:12] LABS: TSH w/ Reflex to FT4 1.44 uIU/mL (0.47-4.68); Vitamin D 25 Hydroxy (D3) 34.7 ng/mL (30.0-100.0)
[2023-10-19 20:27] LABS: Ferritin 197 ng/mL (11-264)
[2023-10-19 20:59] LABS: Folate 11.5 ng/mL (2.76-20.0); Vitamin B12 241 pg/mL (239-931)
== END ==
PROVIDERS: PCP Physician Assistant; Visit Provider Physician Assistant
DX: Z86.2 Personal history of diseases of the blood and blood-forming organs and certain disorders involving the immune mechanism (principal); Z92.89 Personal history of other medical treatment; R53.83 Other fatigue; Z13.6 Encounter for screening for cardiovascular disorders
CPT/HCPCS: 80053; 80061; 82306; 82607; 82728; 82746; 83540; 83550; 84443; 84481; 85025; 87045

== ENCOUNTER → 2023-10-20 08:32 | Outpatient (CLI) | payer OTHER, SELFPAY | PROVIDERS: PCP Physician Assistant; Visit Provider Physician Assistant | DX: Z12.11 Encounter for screening for malignant neoplasm of colon (principal) | CPT/HCPCS: 82274 ==

== ENCOUNTER → 2024-01-23 11:28 | Outpatient (CLI) | payer OTHER, SELFPAY ==
--- NOTE | 2024-01-23 11:32 | DI.MG.S_ITS ---
BILATERAL DIGITAL SCREENING MAMMOGRAM 3D/2D WITH CAD: 01/23/2024 CLINICAL: Baseline exam. Routine screening. No prior exams were available for comparison. Both breasts are heterogeneously dense, which may obscure small masses (category c / 51-75% glandular tissue). Current study was also evaluated with a Computer Aided Detection (CAD) system. No significant masses, calcifications, or other findings are seen in either breast. IMPRESSION: NEGATIVE There is no mammographic evidence of malignancy. A 1 year screening mammogram is recommended. Based on the Tyrer Cuzick model (a risk assessment model) the patient's lifetime risk is 10.8% and her 10 year risk is 3.5%. According to the ACR, ACS, and NCCN guidelines, an annual breast MRI exam along with mammogram is recommended if the patient's lifetime risk is 20% or greater. This exam was interpreted at Station ID: [id number]. NOTE: For mammograms, a report in lay terms will be sent to the patient. Approximately 15% of breast malignancies will not be visualized mammographically. In the management of a palpable breast mass, a negative mammogram must not discourage biopsy of a clinically suspicious lesion. Electronically Signed By: Andrea nation/edith:01/23/2024 21:13:14 letter sent: Normal Exam ACR BI-RADS Category 1: Negative [id number]
== END ==
PROVIDERS: PCP Physician Assistant; Referring Provider Physician Assistant; Visit Provider Physician Assistant
DX: Z12.31 Encounter for screening mammogram for malignant neoplasm of breast (principal); R92.333 Mammographic heterogeneous density, bilateral breasts
CPT/HCPCS: 77063; 77067

== ENCOUNTER → 2024-04-09 08:26 | Outpatient (CLI) | payer OTHER, SELFPAY ==
--- NOTE | 2024-04-09 08:27 | DI.MRI.S_ITS ---
PROCEDURE: MR SHOULDER RT WO CON INDICATIONS: worsening right shoulder pain. PT not helping. TECHNIQUE: Noncontrast oblique coronal T2 fast spin echo with fat saturation, oblique sagittal T1 spin echo and T2 fast spin echo with fat saturation, axial T1 spin echo and T2 fast spin echo with fat saturation through the shoulder. COMPARISON: [facility] ([facility]), CR, XR SHOULDER RT MIN 2V, 11/01/2023, 12:22. FINDINGS: Image quality: Excellent. Rotator cuff: The supraspinatus, infraspinatus, and subscapularis tendons appear intact throughout. Sagittal images demonstrate no muscle atrophy. Bones and bursae: No bone marrow contusions or fractures. Mild acromioclavicular joint degeneration. The acromion demonstrates conventional anatomy, without an os acromiale. No pathologic subacromial-subdeltoid or subcoracoid bursal fluid is present. Capsule and soft tissues: Labrum is grossly intact The long head of the biceps tendon demonstrates normal location and morphology. The rotator interval appears normal, without fibrosis. The coracohumeral ligament is normal in thickness. IMPRESSION: 1. Mild acromioclavicular joint osteoarthritis. 2. No rotator cuff tear. Dictated by: Tami Parker M.D. on 04/09/2024 at 9:59 Approved by: Tami Parker M.D. on 04/09/2024 at 10:17
== END ==
LOC: MRI 08:27
PROVIDERS: PCP Physician Assistant; Referring Provider Physician Assistant; Visit Provider Physician Assistant
DX: M75.41 Impingement syndrome of right shoulder (principal); M19.011 Primary osteoarthritis, right shoulder; M25.511 Pain in right shoulder
CPT/HCPCS: 73221

== ENCOUNTER → 2024-04-11 14:31 | Outpatient (CLI) | payer OTHER, SELFPAY ==
[2024-04-11 20:15] LABS: Add Manual Diff / Slide Review NO; Basophils Absolute Auto 0 /uL (0-100); Basophils Percent Auto 0.5 % (0-2); Eosinophils Absolute Auto 100 /uL (0-450); Eosinophils Percent Auto 1.2 % (2-4); Hematocrit 36.7 % (36-46); Hemoglobin 12.2 g/dL (12.0-16.0); Lymphocytes Absolute Auto 1300 /uL (1100-4500); Lymphocytes Percent Auto 29.4 % (25-40); Mean Corpuscular HGB Conc 33.3 % (30-36); Mean Corpuscular Hemoglobin 30.4 PG (26-34); Mean Corpuscular Volume 91.4 fL (80-100); Monocytes Absolute Auto 400 /uL (0-900); Monocytes Percent Auto 8.8 % (3-14); Neutrophils Absolute Auto 2700 /uL (1500-7000); Neutrophils Percent Auto 60.1 % (50-75); Platelet Count 174 X10^3/uL (150-400); Red Blood Cell Count 4.02 X10^6/uL (4.0-5.2); Red Cell Distribution Width 13.3 % (11.6-14.8); White Blood Cell Count 4.5 X10^3/uL (4.5-11.0)
[2024-04-11 20:19] LABS: HEMOLYSIS < 15 (0-50); Iron 42 ug/dL (37-170)
[2024-04-11 20:35] LABS: Percent Iron Saturation 14 % (15-50); Total Iron Binding Capacity 293 ug/dL (265-497); Transferrin 225 mg/dL (206-381)
[2024-04-11 20:45] LABS: Vitamin D 25 Hydroxy (D3) 43.2 ng/mL (30.0-100.0)
[2024-04-11 21:00] LABS: Ferritin 208 ng/mL (11-264)
[2024-04-11 21:25] LABS: Vitamin B12 Reflex MMA if <400 286 pg/mL (239-931)
== END ==
PROVIDERS: PCP Physician Assistant; Visit Provider Family Medicine
DX: R19.8 Other specified symptoms and signs involving the digestive system and abdomen (principal); R19.7 Diarrhea, unspecified; Z71.3 Dietary counseling and surveillance; R10.9 Unspecified abdominal pain; G89.29 Other chronic pain; R14.0 Abdominal distension (gaseous); Z11.59 Encounter for screening for other viral diseases; Z11.4 Encounter for screening for human immunodeficiency virus [HIV]
CPT/HCPCS: 81377; 82306; 82607; 82728; 82784; 83516; 83540; 83550; 83921; 85025; 86003; 86803; 87389

== ENCOUNTER → 2024-04-30 15:39 | Outpatient (CLI) | payer OTHER, SELFPAY ==
--- NOTE | 2024-04-30 15:40 | DI.CT.S_ITS ---
PROCEDURE: CT ABDOMEN LIVER PROTOCOL INDICATIONS: right flank/UQ pain TECHNIQUE: 4 phase scanning was performed. Non-contrast 5 mm axial sections acquired from the diaphragm to the iliac crests. Following the administration of intravenous contrast, 5 mm thick arterial-phase, portal venous-phase, and 5-minute delayed phase images were acquired through the liver. 5 mm thick coronal and sagittal reformats were performed. For radiation dose reduction, the following was used: automated exposure control, adjustment of mA and/or kV according to patient size. COMPARISON: [facility], CT, CT ABDOMEN LIVER PROTOCOL, 05/24/2022, 8:45. FINDINGS: Image quality: Diagnostic Lower chest: Lingular atelectasis. Normal heart size. Possible coronary calcifications Liver: Subcentimeter lesions are too small to characterize within the liver, usually cysts or smaller hemangiomas. Multiple hepatic benign cavernous hemangiomas, at least 3 in the right lobe and a small lesion also seen in the left lobe No suspicious solid mass Gallbladder and biliary system: Gallbladder is nondistended. Prominent biliary system is special ED intrahepatic ducts, CBD is nondilated at 6 mm Pancreas: No ductal dilation Spleen: Nonenlarged Adrenals: No discrete nodules Kidneys: Numerous cysts. Subcentimeter lesions are too small to characterize, usually also cysts. There are 2 right and 1 left nonobstructing renal calculi measuring under 5 mm. Vessels and lymph nodes: Main portal vein appears patent. No abdominal aortic aneurysm or pathologic lymph nodes by size criteria. Bowel and peritoneum: No evidence of small bowel obstruction. There is moderate fecal loading partially seen Body wall: Unremarkable Bones: Unremarkable IMPRESSION: Multiple liver hemangiomas. Subcentimeter lesions are too small to characterize, usually additional hemangiomas or cysts. Gallbladder is nondistended, without radiopaque gallstones. Mildly prominent intrahepatic biliary system without CBD dilation. If further evaluation is needed, consider MRCP or ERCP. No acute or suspicious findings identified on CT. Moderate fecal loading. Dictated by: Raf Roger M.D. on 05/01/2024 at 9:44 Approved by: Raf Roger M.D. on 05/01/2024 at 9:50
== END ==
PROVIDERS: PCP Physician Assistant; Referring Provider Physician Assistant; Visit Provider Physician Assistant
DX: N20.0 Calculus of kidney; K76.9 Liver disease, unspecified; R93.2 Abnormal findings on diagnostic imaging of liver and biliary tract; D18.09 Hemangioma of other sites; R10.11 Right upper quadrant pain
CPT/HCPCS: 74170; Q9967

== ENCOUNTER → 2024-06-07 10:44 | Outpatient (CLI) | payer OTHER, SELFPAY ==
[2024-06-07 19:56] LABS: Add Manual Diff / Slide Review NO; Basophils Absolute Auto 0 /uL (0-100); Basophils Percent Auto 0.8 % (0-2); Eosinophils Absolute Auto 0 /uL (0-450); Eosinophils Percent Auto 0.9 % (2-4); Hematocrit 40.3 % (36-46); Hemoglobin 13.2 g/dL (12.0-16.0); Lymphocytes Absolute Auto 900 /uL (1100-4500); Lymphocytes Percent Auto 22.8 % (25-40); Mean Corpuscular HGB Conc 32.7 % (30-36); Mean Corpuscular Volume 91.8 fL (80-100); Monocytes Absolute Auto 300 /uL (0-900); Monocytes Percent Auto 7.2 % (3-14); Neutrophils Absolute Auto 2600 /uL (1500-7000); Neutrophils Percent Auto 68.3 % (50-75); Platelet Count 160 X10^3/uL (150-400); Red Blood Cell Count 4.39 X10^6/uL (4.0-5.2); Red Cell Distribution Width 13.2 % (11.6-14.8); White Blood Cell Count 3.9 X10^3/uL (4.5-11.0)
[2024-06-07 20:46] LABS: Alanine Aminotransferase 23 IU/L (<35); Albumin 4.4 g/dL (3.5-5.0); Albumin Globulin Ratio 1.2 (1.0-2.8); Alkaline Phosphatase 95 U/L (38-126); Aspartate Aminotransferase 34 IU/L (14-36); BUN Creatinine Ratio 16.9 (6-22); Bilirubin Total 0.4 mg/dL (0.2-1.3); Blood Urea Nitrogen 11 mg/dL (7-17); Calcium 9.9 mg/dL (8.4-10.2); Carbon Dioxide 31 mmol/L (22-32); Chloride 101 mmol/L (98-107); Estimated Glomerular Filt Rate > 60 mL/min (>60); Globulin 3.6 g/dL (1.7-4.1); Glucose 90 mg/dL (70-100); HEMOLYSIS < 15 (0-50); Sodium 136 mmol/L (137-145)
== END ==
PROVIDERS: PCP Physician Assistant; Visit Provider Internal Medicine Gastroenterology
DX: R10.13 Epigastric pain (principal); R93.2 Abnormal findings on diagnostic imaging of liver and biliary tract
CPT/HCPCS: 80053; 85025

== ENCOUNTER → 2024-07-15 14:07 | Outpatient (CLI) | payer OTHER, SELFPAY ==
[2024-07-15 19:40] LABS: HEMOLYSIS < 15 (0-50); Iron 47 ug/dL (37-170)
[2024-07-15 19:55] LABS: Percent Iron Saturation 18 % (15-50); Total Iron Binding Capacity 260 ug/dL (265-497); Transferrin 228 mg/dL (206-381)
[2024-07-15 20:09] LABS: TSH w/ Reflex to FT4 1.18 uIU/mL (0.47-4.68)
[2024-07-15 20:17] LABS: Ferritin 188 ng/mL (11-264)
[2024-07-15 20:33] LABS: Vitamin B12 555 pg/mL (239-931)
== END ==
PROVIDERS: Internal Medicine Gastroenterology; PCP Physician Assistant; Referring Provider Family Medicine; Visit Provider Family Medicine
DX: R63.4 Abnormal weight loss (principal); R93.2 Abnormal findings on diagnostic imaging of liver and biliary tract; R79.89 Other specified abnormal findings of blood chemistry; Z86.2 Personal history of diseases of the blood and blood-forming organs and certain disorders involving the immune mechanism
CPT/HCPCS: 82607; 82728; 83540; 83550; 84443

== ENCOUNTER → 2024-08-06 14:50 | Outpatient (CLI) | payer OTHER, SELFPAY ==
--- NOTE | 2024-08-06 14:52 | DI.RAD.S_ITS ---
PROCEDURE: XR DEXA AXIAL SKELETON INDICATIONS: weight loss, postmenopausal COMPARISON: None. FINDINGS: Lumbar Spine: Bone mineral density 0.737 g/cm2, T score -2.8. Left Femoral Neck: Bone mineral density 0.500 g/cm2, T score -3.1 Left Hip: Bone mineral density 0.540 g/cm2, T score -3.3. Fracture Risk Calculation (when applicable): 10-year fracture risk of a major osteoporotic fracture 11 percent and of a hip fracture 3.2 percent. (T score greater or equal to -1.0 to: NORMAL) (T score from -1.1 to -2.4: OSTEOPENIA) (T score less than or equal to -2.5: OSTEOPOROSIS) IMPRESSION: Osteoporosis---recommend repeat DEXA in 2 years or less for reassessment of response to treatment. Follow-up guidelines as follows: Osteoporosis: Consider a repeat DEXA and Vertebral Fracture Assessment (VFA) exam in 2 years or sooner if medically necessary, to reassess this patient's status. Osteopenia: Consider a repeat DEXA in 2-3 years to reassess this patient's status, or if there is a new clinical indication. Normal: Consider a repeat DEXA in 5 years or sooner, or if there is a new clinical indication. All treatment decisions require clinical judgment and consideration of individual patient factors, including patient preferences, comorbidities, previous drug use, risk factors not captured in the FRAX model (e.g., frailty, falls, vitamin D deficiency, increased bone turnover, interval significant decline in bone density ) and possible under- or over-estimation of fracture risk by FRAX. In addition, the NOF Guide recommends that FDA-approved medical therapies be considered in postmenopausal women and men age >= 50 years with a: * Hip or vertebral (clinical or morphometric) fracture * T-score of <=-2.5 at the spine or hip * Ten-year fracture probability by FRAX of >= 3% for hip fracture or >=20% for major osteoporotic fracture. Dictated by: Herber Lyon M.D. on 08/07/2024 at 21:37 Approved by: Herber Lyon M.D. on 08/07/2024 at 21:39
== END ==
LOC: RAD 14:51
PROVIDERS: PCP Family Medicine; Referring Provider Family Medicine; Visit Provider Family Medicine
DX: R63.4 Abnormal weight loss (principal); Z78.0 Asymptomatic menopausal state; M81.0 Age-related osteoporosis without current pathological fracture
CPT/HCPCS: 77080

== ENCOUNTER → 2024-11-19 11:06 | Outpatient (CLI) | payer OTHER, SELFPAY ==
[2024-11-19 19:01] LABS: Add Manual Diff / Slide Review NO; Basophils Absolute Auto 0 /uL (0-100); Basophils Percent Auto 0.6 % (0-2); Eosinophils Absolute Auto 0 /uL (0-450); Eosinophils Percent Auto 0.7 % (2-4); Hematocrit 38.5 % (36-46); Hemoglobin 12.9 g/dL (12.0-16.0); Lymphocytes Absolute Auto 1100 /uL (1100-4500); Mean Corpuscular HGB Conc 33.4 % (30-36); Mean Corpuscular Hemoglobin 30.7 PG (26-34); Mean Corpuscular Volume 91.8 fL (80-100); Monocytes Absolute Auto 400 /uL (0-900); Neutrophils Absolute Auto 3600 /uL (1500-7000); Neutrophils Percent Auto 69.7 % (50-75); Platelet Count 167 X10^3/uL (150-400); Red Cell Distribution Width 13.7 % (11.6-14.8); White Blood Cell Count 5.1 X10^3/uL (4.5-11.0)
[2024-11-19 19:29] LABS: HEMOLYSIS < 15 (0-50); Iron 77 ug/dL (37-170)
[2024-11-19 19:31] LABS: Alanine Aminotransferase 24 IU/L (<35); Albumin 4.5 g/dL (3.5-5.0); Albumin Globulin Ratio 1.5 (1.0-2.8); Alkaline Phosphatase 111 U/L (38-126); Aspartate Aminotransferase 32 IU/L (14-36); BUN Creatinine Ratio 31.1 (6-22); Bilirubin Total 0.2 mg/dL (0.2-1.3); Blood Urea Nitrogen 19 mg/dL (7-17); Calcium 9.8 mg/dL (8.4-10.2); Carbon Dioxide 29 mmol/L (22-32); Chloride 99 mmol/L (98-107); Estimated Glomerular Filt Rate > 60 mL/min (>60); Glucose 89 mg/dL (70-99); HEMOLYSIS 16 (0-50); Potassium 4.5 mmol/L (3.4-5.1); Sodium 136 mmol/L (137-145); Total Protein 7.5 g/dL (6.3-8.2)
[2024-11-19 19:48] LABS: Percent Iron Saturation 25 % (15-50); Total Iron Binding Capacity 313 ug/dL (265-497); Transferrin 263 mg/dL (206-381)
[2024-11-19 20:01] LABS: Vitamin D 25 Hydroxy (D3) 34.7 ng/mL (30.0-100.0)
[2024-11-19 20:06] LABS: Ferritin 172 ng/mL (11-264)
== END ==
PROVIDERS: PCP Family Medicine; Visit Provider Family Medicine
DX: D64.9 Anemia, unspecified (principal); M81.0 Age-related osteoporosis without current pathological fracture; R63.4 Abnormal weight loss; R19.8 Other specified symptoms and signs involving the digestive system and abdomen
CPT/HCPCS: 80053; 82306; 82310; 82728; 83540; 83550; 83970; 85025